=== PATIENT | male | born 2000 ===

== ENCOUNTER 2020-10-17 00:39 | Emergency (ER) | payer SELFPAY ==
--- NOTE | 2020-10-17 02:00 | Emergency Department Report ---
- General Chief Complaint: Wound/Laceration Stated Complaint: RT EYE INJURY Time Seen by Provider: 10/17/20 01:58 Source: patient Mode of arrival: Ambulatory Limitations: No Limitations - History of Present Illness Initial Comments: Patient is a 20-year-old male presents emergency room with points of right eyebrow laceration that occurred a few hours ago. Patient states that he was playing basketball and somebody hit their head against his glasses and his glasses caused a laceration. He states there was a bleeding initially but has since improved. He denies any headache, loss of consciousness, vision changes, vomiting, numbness, weakness, bowel or bladder incontinence, or other injury. He is amatory without difficulty. No past medical history per daughter's medications. - Related Data Allergies Allergy/AdvReac Type Severity Reaction Status Date / Time No Known Allergies Allergy Unverified 10/17/20 00:41 ED Review of Systems ROS: Stated complaint: RT EYE INJURY Other details as noted in HPI Comment: All other systems reviewed and negative ED Past Medical Hx - Past Medical History Previous Medical History?: No - Surgical History Past Surgical History?: No - Social History Smoking Status: Never Smoker Substance Use Type: None ED Physical Exam - General Limitations: No Limitations General appearance: alert, in no apparent distress - Head Head exam: Present: other (2 cm laceration present to the right eyebrow, superficial, no muscle/tendon involvement, no foreign body, able to lift the eyebrow, no facial or skull bony ttp) - Eye Eye exam: Present: normal appearance, PERRL, EOMI. Absent: periorbital swelling, periorbital tenderness - ENT ENT exam: Present: mucous membranes moist - Neck Neck exam: Present: normal inspection, full ROM. Absent: tenderness, meningismus - Neurological Exam Neurological exam: Present: alert, oriented X3, CN II-XII intact, normal gait. Absent: motor sensory deficit - Psychiatric Psychiatric exam: Present: normal affect, normal mood - Skin Skin exam: Present: warm, dry ED Course Vital Signs 10/17/20 10/17/20 00:43 02:26 Temperature 98.6 F 98.2 F Pulse Rate 82 82 Respiratory 18 16 Rate Blood Pressure 98/60 Blood Pressure 122/50 [Left] O2 Sat by Pulse 96 100 Oximetry - Laceration /Wound Repair Right Face Wound Location: face (right eyebrow) Wound Length (cm): 2 Wound's Depth, Shape: superficial Wound Explored: no foreign body removed Irrigated w/ Saline (ccs): 100 Betadine Prep?: Yes Wound Debrided: moderate Wound Repaired With: Steri-strips, Dermabond Layer Closure?: No Sterile Dressing Applied?: Yes Progress: Wound irrigated with saline and thoroughly scrubbed with Betadine, sterile drapes applied, sterile gloves worn, multiple layers of Dermabond placed with good skin approximation, Steri-Strips applied, patient tolerated well, bleeding controlled, no complications ED Medical Decision Making - Medical Decision Making Patient is a 20-year-old male presents emergency room with points of right eyebrow laceration that occurred a few hours ago. Patient states that he was playing basketball and somebody hit their head against his glasses and his glasses caused a laceration. He states there was a bleeding initially but has since improved. He denies any headache, loss of consciousness, vision changes, vomiting, numbness, weakness, bowel or bladder incontinence, or other injury. He is ambulatory without difficulty. No past medical history per daughter's medications. Vitals are stable. On exam:2 cm laceration present to the right eyebrow, superficial, no muscle/tendon involvement, no foreign body, able to lift the eyebrow, no facial or skull bony ttp, no focal neuro deficits. [place] CT head rule is 0, CT head imaging is not recommended. Nexus criteria negative, C-spine can be cleared clinically. Laceration repaired per procedure note with Dermabond and Steri-Strips without any complications. Advised patient Please keep area completely dry for the next 48 hours. After 48 hours may wash around area with antibacterial soap and water and pat dry. Please do not rub area. No hot tub, no pool, no soaking in water. After 48 hours showering is fine. Follow-up with a primary care doctor. Return to emergency room for any new or worsening symptoms. Critical care attestation.: If time is entered above; I have spent that time in minutes in the direct care of this critically ill patient, excluding procedure time. ED Disposition Clinical Impression: Laceration of right eyebrow Qualifiers: Encounter type: initial encounter Qualified Code(s): S01.111A - Laceration without foreign body of right eyelid and periocular area, initial encounter Disposition: DC-01 TO HOME OR SELFCARE Is pt being admited?: No Does the pt Need Aspirin: No Condition: Stable Instructions: Sutures, [place], or Adhesive Wound Closure, [id number] Additional Instructions: Please keep area completely dry for the next 48 hours. After 48 hours may wash around area with antibacterial soap and water and pat dry. Please do not rub area. No hot tub, no pool, no soaking in water. After 48 hours showering is fine. Follow-up with a primary care doctor. Return to emergency room for any new or worsening symptoms. Referrals: NAIF PEREZ MD [Staff Physician] - 3-5 Days [facility] [Provider Group] - 3-5 Days Time of Disposition: 02:12 Print Language: [id number]
[2020-10-17 02:28] VITALS: BP 122/50
== END 2020-10-17 02:28 | disposition home or self-care (01) ==
LOC: ED 00:39
DX: S01.111A Laceration without foreign body of right eyelid and periocular area, initial encounter (principal); Z79.899 Other long term (current) drug therapy; W21.05XA Struck by basketball, initial encounter; Y93.67 Activity, basketball; Y92.89 Other specified places as the place of occurrence of the external cause; Y99.8 Other external cause status
CPT/HCPCS: 99282

== ENCOUNTER → 2021-06-02 19:15 | Emergency (ER) | payer SELFPAY | END | disposition left against medical advice (07) | LOC: ED 19:15 | DX: R42 Dizziness and giddiness (principal); Z53.21 Procedure and treatment not carried out due to patient leaving prior to being seen by health care provider ==